=== PATIENT | female | born 1965 | race Caucasian/White ===

== ENCOUNTER → 2016-05-15 | Outpatient (CLI) | payer BC ==
[~2016-05-15] MED LIST: ALLDSR/24 PO; BCP DAILY; CPR500 PO; DFL150 PO; LRT5 PO
--- NOTE | 2016-05-15 16:36 | MAMMOGRAPHY REPORT ---
BILATERAL DIGITAL SCREENING MAMMOGRAM TOMOSYNTHESIS WITH CAD: 05/15/2016 CLINICAL HISTORY: Routine screening. Patient has no complaints. TECHNIQUE: Breast tomosynthesis in addition to standard 2D mammography was performed. Current study was also evaluated with a Computer Aided Detection (CAD) system. COMPARISON: Comparison is made to exams dated: 05/16/2015 mammogram, 04/28/2013 mammogram, 05/08/2013 mammogram, 04/26/2012 mammogram, and 04/20/2011 mammogram - [facility]. BREAST COMPOSITION: There are scattered areas of fibroglandular density in both breasts. FINDINGS: No suspicious masses, calcifications, or areas of architectural distortion are noted in e ither breast. There has been no significant interval change compared to prior exams. IMPRESSION: ACR BI-RADS CATEGORY 1: NEGATIVE There is no mammographic evidence of malignancy. A 1 year screening mammogram is recommended. The p atient will receive written notification of the results. Approximately 10% of breast cancers are not detected with mammography. A negative mammographic repor t should not delay biopsy if a clinically suggestive mass is present. Rosa Elena Garcia M.D. ah/:05/15/2016 15:19:18 Behavioral Therapy Coordinator: Brittany MATT(Lucila)(M), [facility] letter sent: Normal 1/2 BI-RADS Code: ACR BI-RADS Category 1: Negative
== END | disposition home or self-care (01) ==
LOC: C.MAMM 07:52
PROVIDERS: ATTEND Nurse Practitioner Family
DX: Z12.31 Encounter for screening mammogram for malignant neoplasm of breast (principal)

== ENCOUNTER → 2016-07-16 | Outpatient (CLI) | payer BC | END | disposition home or self-care (01) | LOC: C.PAPS 10:25 | PROVIDERS: ATTEND Obstetrics & Gynecology | DX: Z01.419 Encounter for gynecological examination (general) (routine) without abnormal findings (principal) ==

== ENCOUNTER → 2017-05-18 | Outpatient (CLI) | payer OTHER ==
--- NOTE | 2017-05-19 14:13 | MAMMOGRAPHY REPORT ---
BILATERAL DIGITAL SCREENING MAMMOGRAM TOMOSYNTHESIS WITH CAD: 05/18/2017 CLINICAL HISTORY: Routine screening. Patient has no complaints. TECHNIQUE: Breast tomosynthesis in addition to standard 2D mammography was performed. Current study was also evaluated with a Computer Aided Detection (CAD) system. COMPARISON: Comparison is made to exams dated: 05/15/2016 mammogram, 05/16/2015 mammogram, 05/14/2014 m ammogram, 04/28/2013 mammogram, 04/26/2012 mammogram, and 04/20/2011 mammogram - [facility]. BREAST COMPOSITION: There are scattered areas of fibroglandular density in both breasts. FINDINGS: No suspicious masses, calcifications, or areas of architectural distortion are noted in ei ther breast. There has been no significant interval change compared to prior exams. Circumscribed be nign-appearing 8 mm mass within the left lateral breast at approximately 3:00 is stable compared to p rior exams including the MLO view from the 2014 exam. IMPRESSION: ACR BI-RADS CATEGORY 2: BENIGN There is no mammographic evidence of malignancy. A 1 year screening mammogram is recommended. The pa tient will receive written notification of the results. Approximately 10% of breast cancers are not detected with mammography. A negative mammographic report should not delay biopsy if a clinically suggestive mass is present. Rosa Elena Garcia M.D. ah/:05/18/2017 15:53:11 Traffic Analysis Technician: Brittany VANCE)(M), [facility] letter sent: Normal 1/2 BI-RADS Code: ACR BI-RADS Category 2: Benign
== END | disposition home or self-care (01) ==
LOC: C.MAMM 10:36
PROVIDERS: ATTEND Nurse Practitioner Family
DX: Z12.31 Encounter for screening mammogram for malignant neoplasm of breast (principal)